=== PATIENT | male | born 1970 | race Caucasian/White ===

== ENCOUNTER 2019-03-26 16:31 | Emergency (ER) | payer OTHER ==
[~2019-03-26] VITALS: Ht 167.6 cm; Wt 76.9 kg
[2019-03-26 16:34] VITALS: Ht 167.6 cm; Wt 76.9 kg
[2019-03-26 16:51] LABS: BASOPHIL % 0.4 % (0-2); PLATELET COUNT 216 x10^3mcL (130-400); RED CELL DISTRIBUTION WIDTH 14.3 % (11.5-14.5)
[2019-03-26 16:59] LABS: CALCIUM 9.1 mg/dL (8.5-10.1); CARBON DIOXIDE 32.9 mmol/L (21-32); CHLORIDE SERUM 100 mmol/L (98-107); CREATININE SERUM 1.1 mg/dL (0.7-1.3); GFR1 > 60 mL/min; GLUCOSE SERUM 116 mg/dL (74-106); POTASSIUM SERUM 4.8 mmol/L (3.5-5.1); SODIUM SERUM 138 mmol/L (136-145)
[2019-03-26 17:04] LABS: ALBUMIN 3.9 g/dL (3.4-5.0); ALKALINE PHOSPHATASE 88 U/L (46-116); ALT/SGPT 123 U/L (16-63); AST/SGOT 103 U/L (15-37); BILIRUBIN TOTAL 0.4 mg/dL (0.20-1.00); TOTAL PROTEIN, SERUM 7.6 g/dL (6.4-8.2)
[2019-03-26 18:07] VITALS: BP 154/97
== END 2019-03-26 18:07 | disposition home or self-care (01) ==
LOC: ED 16:31
DX: R07.89 Other chest pain (principal); F41.9 Anxiety disorder, unspecified; R03.0 Elevated blood-pressure reading, without diagnosis of hypertension; F17.200 Nicotine dependence, unspecified, uncomplicated; Z98.890 Other specified postprocedural states; Z85.47 Personal history of malignant neoplasm of testis
CPT/HCPCS: 36415; 99406

== ENCOUNTER 2019-04-02 18:36 | Inpatient (IN) | payer OTHER ==
[~2019-04-02] VITALS: Ht 167.6 cm; Wt 72.6 kg
[2019-04-02 19:08] VITALS: Ht 167.6 cm; Wt 72.6 kg
--- NOTE | 2019-04-02 19:13 | NUR ---
EKG IN PROGRESS.
--- NOTE | 2019-04-02 19:34 | NUR ---
PT PRESENTS TO ED WTIH FOR C/O CHEST PAIN. WHEN ASKED PT TO DESCRIBE WHAT IS GOING ON PT STATES "ITS REALLY MORE ANXIETY". PT STATES THAT HE IS A CHRONIC BINGE DRINKER FOR THE PAST 10 YEARS. PT STATES THAT HE FEELS LIKE HE IS GOING THROUGH WITHDRAWAL. PT STATES THAT HE HAS GONE THROUGH WITHDRAWAL BEFORE BUT DENIES EVER HAVING A SEIZURE FROM WITHDRAWAL. PT STATES HIS LAST DRINK WAS 3PM THIS AFTERNOOON. APPROX 4 HOURS AUTHORS MOTIVATIONAL. AT BEDSIDE. PT STATES THAT HE FEELS MORE LIKE HE IS HAVING "PALPITATIONS" THAT ARE MAKING HIM NERVOUS AND FEEL MORE ANXIOUS. PT STATES HE HAS BEEN FEELING LIKE THIS FOR THE PAST FEW WEEKS AND THAT HE HAS DRINKING APPROX 3 BOTTLES OF VODKA HIMSELF IN THE LAST 3 WEEKS. PT CONNECTED TO CARDIAC MONITORS. PT IS SINUS TACHYCARDIA ON MONITORS, IV STARTED TO L AC. PT CONNECTED TO PLETH OX. PT SPEAKING IN CLEAR AND FULL SENTENCES. NAD AT THIS TIME. AWAITING MSE
--- NOTE | 2019-04-02 19:44 | NUR ---
PT REQUESTING MEDICATION FOR HIS "ANXIETY". NO MD AT THIS TIME. AWAITING MD TO DRAWING TRACER CHART FOR MED REQUEST. NAD AT THIS TIME
[2019-04-02 20:20] LABS: BASOPHIL % 0.3 % (0-2); PLATELET COUNT 251 x10^3mcL (130-400); RED CELL DISTRIBUTION WIDTH 13.8 % (11.5-14.5)
[2019-04-02 20:27] LABS: CALCIUM 9.7 mg/dL (8.5-10.1); CARBON DIOXIDE 23.3 mmol/L (21-32); CHLORIDE SERUM 98 mmol/L (98-107); CREATININE SERUM 1.2 mg/dL (0.7-1.3); GFR1 > 60 mL/min; GLUCOSE SERUM 135 mg/dL (74-106); POTASSIUM SERUM 3.6 mmol/L (3.5-5.1); SODIUM SERUM 138 mmol/L (136-145)
[2019-04-02 20:32] LABS: ALBUMIN 3.9 g/dL (3.4-5.0); ALKALINE PHOSPHATASE 116 U/L (46-116); ALT/SGPT 95 U/L (16-63); AST/SGOT 57 U/L (15-37); BILIRUBIN TOTAL 1.02 mg/dL (0.20-1.00); MAGNESIUM 2.6 mg/dL (1.8-2.4)
--- NOTE | 2019-04-02 20:32 | NUR ---
MD SIGALA MADE AWARE PT REQUESTING SOMETHING FOR ANXIETY AWAITING NEW ORDERS AT THIS TIME PT STATES HE IS UNABLE TO PROVIDE URINE AT THIS TIME
[2019-04-02 20:34] LABS: TOTAL PROTEIN, SERUM 8.4 g/dL (6.4-8.2)
[2019-04-02 20:41] LABS: FREE T4 1.05 ng/dL (0.76-1.46); FREE THYROXINE INDEX 3.1 ug/dL (1.4-4.5); T4(THYROXINE) 8.5 ug/dL (4.7-13.3)
[2019-04-02 20:42] LABS: T3 TOTAL 0.79 ng/mL
[2019-04-02 21:52] LABS: AMPHETAMINE QUAL UR NONE DETECTED (See below)
--- NOTE | 2019-04-02 22:09 | NUR ---
PT CLAIMS HE DOES NOT TAKE ANY MEDICATIONS AT HOME BESIDES "TESTOSTERONE OCCASIONALLY". PT STATES THAT THE LAST TIME HE TOOK IT WAS 4 MONTHS AGO
--- NOTE | 2019-04-02 22:13 | NUR ---
REPORT GIVEN TO LUIS MANUEL ZENDEJAS
--- NOTE | 2019-04-02 22:21 | NUR ---
RECEIVED PT FROM ER, PT ADMIT FOR ETOH PANCREATITIS, PT IS A/O X4, VERBAL RESPONSIVE, ABLE TO TELL WHAT HE NEEDS. LUNG SOUND CLEAR BILATERAL,NO COUGH, NO SOB, PT IS ON TELE 27, NSR, DENY ANY CHEST PAIN OR DISCOMFORT, BOWEL SOUND PRESENT ALL 4 QUADRANTS, NO DISTENTION, NO TENDER. C/O NAUSEA AT THIS TIME, PEDAL PULSE PRESENT BOTH FEET, NO EDEMA, IV AT LEFT AC, NO LEAKING, NO INFILTRAITON. PT ALSO STATE HAS SUICIDAL IDEA. PLAN TO USE GUN TO KILL HIMSELF BUT DENY ANY ATTEMP WITHIN LAST 30 DAYS. PT IS CLOSE TO NURSE STATION AND SITTER AT BEDSIDE. ALL ADLS ASSIST, ALL NEED MET, CALL LIGHT IN REACH, WILL CONTINUE TO MONITOR.
[2019-04-02 22:33] LABS: UA SPECIFIC GRAVITY 1.025 (1.005-1.035); microscopic required? YES; urine erythrocyte 2+ (NEGATIVE)
[2019-04-02 22:44] VITALS: BP 143/92
--- NOTE | 2019-04-02 22:51 | NUR ---
PT REQUESTING SLEEP AID. DR. WALKER MADE AWARE.
--- NOTE | 2019-04-02 23:00 | NUR ---
PT C/O NAUSEA AND ANXIETY. ZOFRAN AND ATIVAN GIVEN PER ORDER. WILL MONITOR FOR RELIEF.
--- NOTE | 2019-04-02 23:03 | NUR ---
RECEIVED PT FROM ER, PT ADMIT FOR ETOH PANCREATITIS, PT IS A/O X4, VERBAL RESPONSIVE, ABLE TO TELL WHAT HE NEEDS. LUNG SOUND CLEAR BILATERAL,NO COUGH, NO SOB, PT IS ON TELE 27, NSR, DENY ANY CHEST PAIN OR DISCOMFORT, BOWEL SOUND PRESENT ALL 4 QUADRANTS, NO DISTENTION, NO TENDER. C/O NAUSEA AT THIS TIME, PEDAL PULSE PRESENT BOTH FEET, NO EDEMA, IV AT LEFT AC, NO LEAKING, NO INFILTRAITON. ALL ADLS ASSIST, ALL NEED MET, CALL LIGHT IN REACH, WILL CONTINUE TO MONITOR.
--- NOTE | 2019-04-02 23:22 | NUR ---
SPOKE TO DR. WALKER. MADE AWARE OF LA 2.8 AND THAT PT IS SUICIDAL WITH PLAN TO SHOOT HIMSELF WITH HIS GUN AT HOME.
--- NOTE | 2019-04-02 23:47 | NUR ---
PT'S BROTHER AT BEDSIDE TO VISIT.
[2019-04-03] VITALS (7 sets, daily range): BP systolic 121–169; BP diastolic 70–103
--- NOTE | 2019-04-03 00:28 | NUR ---
PT RESTING IN BED WITH EYES CLOSED. SNORING. NO SIGNS OF DISTRESS NOTED. BREATHING EVEN/UNLABORED ON RA. CALL ERMA MANN REACH, BED AT LOWEST POSITION. WILL CONTINUE TO MONITOR.
--- NOTE | 2019-04-03 03:03 | NUR ---
PT C/O FEELING ANXIOUS. HR UP TO 130'S AND BP ELEVATED. ATIVAN GIVEN PER ORDER. WILL MONITOR FOR RELIEF.
--- NOTE | 2019-04-03 04:12 | NUR ---
PT RESTING IN BED WITH EYES CLOSED. HR DOWN TO LOW 90'S. WILL CONTINUE TO MONITOR.
--- NOTE | 2019-04-03 05:05 | NUR ---
PT C/O FEELING ANXIOUS. ATIVAN GIVEN PER ORDER. BREATHING EVEN/UNLABORED ON RA. PT STATES HE HAS NOT REALLY BEEN ABLE TO SLEEP. CALL LIGHT WITHIN REACH, BED AT LOWEST POSITION. WILL ENDORSE TO DAY NURSE.
--- NOTE | 2019-04-03 05:30 | NUR ---
AM RESIDENT IN TO SEE THE PT. STATED OK FOR PT TO DRINK WATER. WATER GIVEN.
[2019-04-03 06:36] LABS: BASOPHIL % 0.3 % (0-2); CALCIUM 8.3 mg/dL (8.5-10.1); CARBON DIOXIDE 22.7 mmol/L (21-32); CHLORIDE SERUM 107 mmol/L (98-107); CREATININE SERUM 1.2 mg/dL (0.7-1.3); GFR1 > 60 mL/min; GLUCOSE SERUM 86 mg/dL (74-106); PHOSPHOROUS 2.3 mg/dL (2.5-4.9); PLATELET COUNT 201 x10^3mcL (130-400); POTASSIUM SERUM 3.8 mmol/L (3.5-5.1); RED CELL DISTRIBUTION WIDTH 14.4 % (11.5-14.5); SODIUM SERUM 143 mmol/L (136-145)
--- NOTE | 2019-04-03 07:35 | NUR ---
RECEIVED PT FROM NILSA RN. PT COMPLAINT OF FEELING ANXIOUS. GIVEN IV MED FOR ANXIETY. PT LAYING IN BED. AA/OX4. SEIZURE PRECAUTIONS IN PLACE. NO TREMORS NOTED. COOPERATIVE AT THIS TIME. SITTER AT BEDSIDE. NO VERBALIZATION OF SUICIDAL IDEATION/HOMICIDAL IDEATION AT THIS TIME. NO N/V. NO COLBY. NO DIZZINESS. NO CHEST PAIN. REPORTS MILD INTERMITTENT SOB WITH ANXIETY. RR EVEN/UNLABORED. CHEST EXPANSION SYMMETRICAL. LUNG SOUNDS CTA BILATERALLY ON ROOM AIR. IV WNL TO LAC, PATENT AND FLUSHES WELL. NO REDNESS, NO SWELLING, NO INFILTRATION. INSTRUCTED TO USE CALL LIGHT TO CALL FOR ASSISTANCE PRN. VERBALIZED UNDERSTANDING. SIDE RAILS UP X2. WILL CONTINUE TO MONITOR.
--- NOTE | 2019-04-03 10:31 | NUR ---
PT LAYING IN BED, AA/OX4, CALM/COOPERATIVE AT THIS TIME. NO COMPLAINT OF ANXIETY AT THIS TIME. NO SOB ON ROOM AIR. NO COMPLAINT OF PAIN. IV WNL TO LAC, NO REDNESS, NO SWELLING, NO INFILTRATION. BED IN LOW POSITION. CALL LIGHT WITHIN REACH. VISITOR AT BEDSIDE. SITTER AT BEDSIDE. WILL CONTINUE TO MONITOR.
--- NOTE | 2019-04-03 12:10 | NUR ---
BP ELEVATED 144/103, ASYMPTOMATIC AT THIS TIME. DENIES COLBY. NO DIZZINESS. NO CHEST PAIN. NO SOB ON ROOM AIR. CALM/COOPERATIVE LAYING IN BED. BP TRENDING DOWN. AA/OX4. SITTER AT BEDSIDE. WILL CONTINUE TO MONITOR.
--- NOTE | 2019-04-03 15:46 | NUR ---
PT COMPLAINT OF ANXIETY. TREMORS NOTED. PT RESTLESS. GIVEN IV MED FOR ANXIETY. NO S/S OF ACUTE DISTRESS. FAMILY MEMBER AT BEDSIDE. NO SOB ON ROOM AIR. IV WNL TO LAC, IV FLUIDS FLOWING. SITTER AT BEDSIDE. BED IN LOW POSITION. CALL LIGHT WITHIN REACH. WILL CONTINUE TO MONITOR.
--- NOTE | 2019-04-03 18:30 | NUR ---
PT FOUND RESTING IN BED WITH BOTH EYES CLOSED. NO S/S OF PAIN. PT APPEARS COMFORTABLE AND CALM AT THIS TIME. EASILY AROUSABLE TO VERBAL STIMULI. CALM/COOPERATIVE. IV WNL TO LAC, NO REDNESS, NO SWELLING, NO INFILTRATION. PATENT AND FLUSHES WELL. IV FLUIDS FLOWING. PT REPORTS HAVING TWO BMS TODAY, DESCRIBES LOOSE/BROWN. NO N/V. NO CHILLS. NO FEVER. NO TREMORS AT THIS TIME. SEIZURE PRECAUTIONS IN PLACE. NSR ON TELE 27, HR 71. BED IN LOW POSITION. CALL LIGHT WITHIN REACH. SITTER AT BEDSIDE. WILL ENDORSE TO ONCOMING SHIFT.
--- NOTE | 2019-04-03 19:43 | NUR ---
PT CURRENTLY RESTING IN BED, NO ACUTE DISTRESS. A/O X4. TELE #27 SHOWING SINUS RHYTHM, DENIES CHEST PAIN. PULSES PALPABLE IN ALL EXTREMITIES, NO EDEMA NOTED. LUNG SOUNDS CTA BILATERALLY, DENIES SOB. BOWEL SOUNDS ACTIVE, LAST BM 04/03/19. VOIDING WELL. AMBULATORY. SKIN INTACT. IV PATENT AND INTACT. PT STATES ANXIETY AND FEELINGS OF HURTING SELF WITH NO ACTIVE PLAN. BED IN LOWEST POSITION, SIDE RAILS UP X2, CALL LIGHT WITHIN REACH, SITTER AT BEDSIDE. WILL CONTINUE TO MONITOR.
--- NOTE | 2019-04-03 21:00 | NUR ---
DR QURESHI SEEN PATIENT. PT CURRENTLY RESTING IN BED, FAMILY AT BEDSIDE. WILL CONTINUE TO MONITOR.
--- NOTE | 2019-04-03 21:13 | NUR ---
BP 167/99, NO ACUTE DISTRESS. DR MENDOZA INFORMED.
[2019-04-04] VITALS (7 sets, daily range): BP systolic 139–166; BP diastolic 80–108
--- NOTE | 2019-04-04 01:28 | NUR ---
PT CURRENTLY RESTING IN BED, NO ACUTE DISTRESS. WILL CONTINUE TO MONITOR.
--- NOTE | 2019-04-04 06:00 | NUR ---
PT SLEPT PERIODICALLY THROUGHOUT NIGHT, NO ACUTE DISTRESS. ALL NEEDS MET AND ATTENDED TO. NO SIGNIFICANT CHANGES. IV PATENT AND INTACT. BED IN LOWEST POSITION, SIDE RAILS UP X2, CALL LIGHT WITHIN REACH. WILL ENDORSE CARE TO ONCOMING NURSE.
[2019-04-04 07:12] LABS: BASOPHIL % 0.2 % (0-2); PLATELET COUNT 182 x10^3mcL (130-400); RED CELL DISTRIBUTION WIDTH 14.1 % (11.5-14.5)
--- NOTE | 2019-04-04 07:15 | NUR ---
RECEIVED PT FROM NILSA LOZA. PT FOUND RESTING IN BED WITH BOTH EYES CLOSED. NO S/S OF ACUTE DISTRESS. NO SOB ON ROOM AIR. SEIZURE PRECAUTIONS IN PLACE. NO TREMORS. NO S/S OF PAIN. SITTER AT BEDSIDE. PT CALM AT THIS TIME. BED IN LOW POSITION. CALL LIGHT WITHIN REACH. SIDE RAILS UP X2. IV WNL TO LAC, PATENT AND FLUSHES WELL. SITE WNL. IV FLUIDS FLOWING. BED IN LOW POSITION. CALL LIGHT WITHIN REACH. WILL CONTINUE TO MONITOR.
[2019-04-04 07:24] LABS: CALCIUM 8.4 mg/dL (8.5-10.1); CARBON DIOXIDE 23.4 mmol/L (21-32); CHLORIDE SERUM 105 mmol/L (98-107); CREATININE SERUM 0.9 mg/dL (0.7-1.3); GFR1 > 60 mL/min; GLUCOSE SERUM 86 mg/dL (74-106); MAGNESIUM 1.7 mg/dL (1.8-2.4); PHOSPHOROUS 2.5 mg/dL (2.5-4.9); POTASSIUM SERUM 3.5 mmol/L (3.5-5.1); SODIUM SERUM 139 mmol/L (136-145)
--- NOTE | 2019-04-04 11:01 | NUR ---
PT COMPLAINT OF NAUSEA, GIVEN IV MED FOR N/V. SEE EMAR. AA/OX4. NO S/S OF ACUTE DISTRESS. IV WNL TO LAC, PATENT. IV FLUIDS FLOWING. SITE WNL. PT CALM AT THIS TIME. BED IN LOW POSITION. CALL LIGHT WITHIN REACH. WILL CONTINUE TO MONITOR.
--- NOTE | 2019-04-04 13:44 | NUR ---
BP TRENDING DOWN 155/94. PT ASYMPTOMATIC. AA/OX4. NO COMPLAINT OF PAIN. NO COLBY. NO DIZZINESS. NO TREMORS NOTED. NO CHEST PAIN. CALM/COOPERATIVE AT THIS TIME. RANCH RIDER LINDA AT BEDSIDE TALKING TO PT AND SIGNIFICANT OTHER. BED IN LOW POSITION. CALL LIGHT WITHIN REACH. WILL CONTINUE TO MONITOR.
--- NOTE | 2019-04-04 14:54 | NUR ---
PT LAYING IN BED. AA/OX4. ANXIOUS/AGITATED. GIVEN MEDICATION, SEE MAR. SEE MAR. NO S/S OF ACUTE DISTRESS. NO SOB ON ROOM AIR. CHEST EXPANSION SYMMETRICAL. NO S/S OF RESPIRATORY DISTRESS. IV WNL TO LAC, NO REDNESS, NO SWELLING, NO INFILTRATION. IV FLUIDS FLOWING. FAMILY MEMBER (COUSIN) AT BEDSIDE TALKING TO PATIENT. BED IN LOW POSITION. CALL LIGHT WITHIN REACH. NO VERBALIZATION OF SUICIDAL/HOMICIDAL IDEATION. WILL CONTINUE TO MONITOR.
--- NOTE | 2019-04-04 17:29 | NUR ---
PT RESTING IN BED WITH BOTH EYES CLOSED. NO S/S OF ACUTE DISTRESS. VS STABLE. IV WNL TO LAC, IV FLUIDS FLOWING. PT CALM AT THIS TIME. BED IN LOW POSITION. CALL LIGHT WITHIN REACH. WILL CONTINUE TO MONITOR.
--- NOTE | 2019-04-04 18:30 | NUR ---
PT AGITATED/ANXIOUS. GIVEN IV MED, SEE MAR. AA/OX4, FOLLOWS COMPLEX COMMANDS, RESPONDS TO VERBAL STIMULI, FACE SYMMETRICAL. SPEECH CLEAR. NO COLBY. NO DIZZINESS. NO TREMORS NOTED. IV WNL TO LAC, IV FLUIDS FLOWING. SITE WNL. NSR ON TELE 27, HR 74. NO CHEST PAIN. BED IN LOW POSITION. CALL LIGHT WITHIN REACH. SEIZURE PRECAUTIONS IN PLACE. SIDE RAILS UP X2. NO S/S OF ACUTE DISTRESS. WILL ENDORSE TO ONCOMING SHIFT.
--- NOTE | 2019-04-04 19:39 | NUR ---
PT CURRENTLY RESTING IN BED, NO ACUTE DISTRESS. A/O X4. TELE #27 SHOWING SINUS RHYTHM, DENIES CHEST PAIN. PULSES PALPABLE IN ALL EXTREMITIES, NO EDEMA NOTED. LUNG SOUNDS CTA BILATERALLY, DENIES SOB. BOWEL SOUNDS ACTIVE, LAST BM 04/04/19, DENIES NAUSEA AT THIS TIME. VOIDS WELL. AMBULATORY. SKIN INTACT. IV PATENT AND INTACT. BED IN LOWEST POSITION, SIDE RAILS UP X2, CALL LIGHT WITHIN REACH. WILL CONTINUE TO MONITOR.
--- NOTE | 2019-04-04 22:32 | NUR ---
BP 166/97, MEDICATED PER EMAR. CURRENT BP 164/108. DR NOEL INFORMED. PT CURRENTLY RESTING IN BED, NO ACUTE DISTRESS. WILL CONTINUE TO MONITOR.
[2019-04-05 00:45] VITALS: BP 151/97
--- NOTE | 2019-04-05 00:45 | NUR ---
PT CURRENTLY RESTING IN BED, NO ACUTE DISTRESS. WILL CONTINUE TO MONITOR.
[2019-04-05 05:58] VITALS: BP 160/105
[2019-04-05 07:06] LABS: BASOPHIL % 0.4 % (0-2); PLATELET COUNT 206 x10^3mcL (130-400); RED CELL DISTRIBUTION WIDTH 14.1 % (11.5-14.5)
[2019-04-05 07:14] VITALS: BP 156/96
[2019-04-05 07:30] VITALS: BP 163/100
[2019-04-05 07:44] LABS: CALCIUM 8.8 mg/dL (8.5-10.1); CARBON DIOXIDE 22.1 mmol/L (21-32); CHLORIDE SERUM 104 mmol/L (98-107); GFR1 > 60 mL/min; GLUCOSE SERUM 81 mg/dL (74-106); POTASSIUM SERUM 3.4 mmol/L (3.5-5.1); SODIUM SERUM 139 mmol/L (136-145)
[2019-04-05] MEDS ORDERED: PRINIVIL10 MG PO (08:40)
[2019-04-05] MEDS ORDERED: LEXAPRO10 MG PO (08:42)
--- NOTE | 2019-04-05 08:54 | NUR ---
AT 0705 - RECEIVED PATIENT FROM NIGHT NURSE. AWAKE, ALERT AND ORIENTED. APPEARS CALM. AT 0810 - RECEIVED CALL FROM PATIENT'S BROTHER. HE WILL BE COMING TO TAKE PATIENT HOME. AT 0850 - RECEIVED ORDER FOR PATIENT TO BE GIVEN LISINOPRIL FOR ELEVATED BP BEFORE PATIENT IS DISCHARGED HOME. ACCORDING TO CHELITA LYONS. BP NEEDS TO BE BELOW 160/90 BEFORE PT CAN DC HOME. RECEIVED DISCHARGE ORDERS.
[2019-04-05 11:45] VITALS: BP 155/98
[2019-04-05 12:37] VITALS: BP 155/98
--- NOTE | 2019-04-05 12:57 | NUR ---
AT 0920 - GIVEN LISINOPRIL PER EMAR. ALSO GIVEN KCL 40 MEQ FOR K+ LEVEL OF 3.3. IV INFUSION DISCONTINUED ORDERED. AT 1200 - LATEST BP 155/98. PATIENT WILL DISCHARGE HOME. AT 1245 - PRINTED DISCHARGE INSTRUCTIONS GIVEN AND EXPLAINED TO PATIENT AND BROTHER. PRESCRIPTION PROVIDED. IV CATHETER REMOVED INTACT. TAKEN OFF CARDIAC MONITORING. PREPARED FOR DISCHARGE. AT 1300 - DISCHARGED HOME WITH BROTHER. TAKEN TO DISCHARGE OFFICE IN WHEELCHAIR.
== END 2019-04-05 13:05 | disposition home or self-care (01) | DRG 282 ==
LOC: ED 18:36 → DU 21:42
PROVIDERS: Emergency Medicine; Psychiatry & Neurology Psychiatry; ADMIT Internal Medicine
DX: K85.20 Alcohol induced acute pancreatitis without necrosis or infection (principal); N17.0 Acute kidney failure with tubular necrosis; R65.10 Systemic inflammatory response syndrome (SIRS) of non-infectious origin without acute organ dysfunction; R45.851 Suicidal ideations; E86.0 Dehydration; Y90.0 Blood alcohol level of less than 20 mg/100 ml; F41.8 Other specified anxiety disorders; F12.10 Cannabis abuse, uncomplicated; F10.129 Alcohol abuse with intoxication, unspecified; R74.0 Nonspecific elevation of levels of transaminase and lactic acid dehydrogenase [LDH]; Z68.25 Body mass index [BMI] 25.0-25.9, adult; Z85.47 Personal history of malignant neoplasm of testis; Z85.72 Personal history of non-Hodgkin lymphomas
CPT/HCPCS: 84402; 84403; 84439; 90732; G0378; G0480; J0360; J2060; J2405; J2543; J3411; J3490; J7030; Q0092